=== PATIENT | female | born 1945 | race Caucasian/White ===

== ENCOUNTER 2022-11-26 13:38 | Outpatient (CLI) | payer MEDICARE, OTHER, SELFPAY ==
--- NOTE | 2022-11-26 13:30 | DI.RAD_ITS ---
Exam(s) XR HIP RT COMPLETE AP PELVIS EXAM: XR HIP RT COMPLETE AP PELVIS CLINICAL HISTORY: right hip pain. TECHNIQUE: 2D digital imaging was performed. COMPARISON: CR XR STANDING ALIGNMENT from 11/26/2022 FINDINGS: Two views: There is no evidence of pelvic nor hip fracture. No osseous lesions. There does not appear to be hi p joint space narrowing on either side. No femoral head osteophytes. No femoral neck bony excrescen ce. No osseous lesions. Bone density is age-appropriate Sacroiliac joints unremarkable. IMPRESSION: DATA REPOSITORY: RADIATION DOSE DELIVERED:
--- NOTE | 2022-11-26 13:30 | DI.RAD_ITS ---
Exam(s) XR STANDING ALIGNMENT EXAM: XR STANDING ALIGNMENT CLINICAL HISTORY: right knee pain. TECHNIQUE: 2D digital imaging was performed. COMPARISON: No exams were available for comparison FINDINGS: 3 views There is a left knee prosthesis which appears to be in satisfactory position. There is moderate narrowing of the medial compartment of the opposite-right knee and marginal osteoph ytes in the medial compartment. Lateral compartment of the right knee exhibits normal height. Both hips appear unremarkable. Right ankle unremarkable. There is tilting of the talar dome in the left ankle. No osseous lesions. Bone density normal. IMPRESSION: DATA REPOSITORY: RADIATION DOSE DELIVERED:
--- NOTE | 2022-11-26 13:45 | DI.RAD_ITS ---
Exam(s) XR KNEE RT 1V EXAM: XR KNEE RT 1V CLINICAL HISTORY: right knee pain. TECHNIQUE: 2D digital imaging was performed. COMPARISON: CR XR STANDING ALIGNMENT from 11/26/2022 FINDINGS: Single lateral view right knee: Appears to be mild degenerative change in the patellofemoral compartment. A joint effusion is noted in the suprapatellar bursa. IMPRESSION: DATA REPOSITORY: RADIATION DOSE DELIVERED:
== END 2022-11-26 13:39 | disposition home or self-care (01) ==
PROVIDERS: PCP Family Medicine; Referring Provider Family Medicine; Visit Provider Physician Assistant
DX: M17.11 Unilateral primary osteoarthritis, right knee (principal); M16.11 Unilateral primary osteoarthritis, right hip
CPT/HCPCS: 99203; 73502; 73560; 77073

== ENCOUNTER 2022-12-10 04:08 | Outpatient (CLI) | payer MEDICARE, OTHER, SELFPAY ==
[2022-12-10 15:24] LABS: HCT 39.8 % (36.0-46.0); HGB 12.9 g/dL (11.2-15.7); MCHC 32.4 % (32.0-36.0); MCV 89 fL (80-95); MPV 11.1 fL (8.0-11.0); Platelet Count 344 10^3/uL (130-400); RBC 4.45 10^6/uL (3.93-5.22); RDW 13.1 % (11.7-14.6)
[2022-12-10 15:48] LABS: Anion Gap 8.2 mmol/L (3-11); BUN 11 mg/dL (7-18); CO2 28.8 mmol/L (21.0-32.0); CREATININE 0.9 mg/dL (0.55-1.02); Calcium 9.1 mg/dL (8.5-10.1); Chloride 105 mmol/L (98-107); Estimated GFR 66.67 (mL/min/1.73m2); Glucose 113 mg/dL (74-106); Potassium 3.5 mmol/L (3.5-5.1); Sodium 142 mmol/L (136-145)
== END 2022-12-10 04:09 | disposition home or self-care (01) ==
LOC: LBO 04:08
PROVIDERS: PCP Family Medicine; Visit Provider Student in an Organized Health Care Education/Training Program
DX: M17.11 Unilateral primary osteoarthritis, right knee (principal); Z01.818 Encounter for other preprocedural examination
CPT/HCPCS: 36415; 80048; 85027

== ENCOUNTER 2022-12-16 07:13 | Day surgery (SDC) | payer MEDICARE, OTHER, SELFPAY ==
[2022-12-16] VITALS (12 sets, daily range): BP systolic 89–155; BP diastolic 49–90; PULSE 67–79; RESP 14–18; TEMP 36.1–36.8; O2SAT 93–98; BMI 34.4
--- NOTE | 2022-12-16 07:13 | W.ANESPRE ---
General Info Date of Service Date Performed: 12/16/22 Height: 5 ft 6.5 in Weight: 98.43 kg Body Mass Index (BMI): 34.4 Surgical Procedure: Operation Date: 12/16/22 09:40 Proposed Procedure Side Surgeon p Knee Total Arthroplasty, Cemented CR Right Lucio Vargas MD Meds Allergies and Home Medications Allergies Allergy/AdvReac Type Severity Reaction Status Date / Time No Known Allergies Allergy Verified 12/16/22 07:35 Home Medication Medication Instructions Recorded amlodipine 5 mg tablet 5 mg PO DAILY 11/26/22 ascorbic acid (vitamin C) 1,000 mg 1 g PO Q6H 11/26/22 capsule cholecalciferol (vitamin D3) 25 25 mcg PO DAILY 11/26/22 mcg (1,000 unit) capsule coenzyme Q10 100 mg capsule (Co 100 mg PO DAILY 11/26/22 Q-10) omega-3 fatty acids-fish oil 300 1 cap PO DAILY 11/26/22 mg-500 mg capsule (Fish Oil) rosuvastatin 10 mg tablet 10 mg PO DAILY 11/26/22 turmeric (bulk) 95 % powder 1 pwd miscellaneous DIRECTED 11/26/22 (Curcumin) vitamin B complex 1 cap PO DAILY 11/26/22 acetaminophen 500 mg tablet 500 mg PO Q6H PRN pain #60 tabs 12/16/22 acetaminophen 500 mg tablet 1,000 mg PO Q8-10H PRN 12/16/22 (Tylenol Extra Strength) aspirin 81 mg tablet,delayed 81 mg PO BID 30 days #60 tabs 12/16/22 release celecoxib 200 mg capsule (Celebrex) 200 mg PO BID PRN #60 caps 12/16/22 dexamethasone 4 mg tablet 4 mg PO DAILY #2 tabs 12/16/22 docusate sodium 100 mg capsule 100 mg PO BID #30 caps 12/16/22 (Colace) gabapentin 300 mg capsule 300 mg PO QHS #14 caps 12/16/22 ibuprofen 400 mg tablet 400 mg PO Q8H 12/16/22 oxycodone 5 mg tablet 5 mg PO Q4H PRN severe 12/16/22 post-operative pain #18 tabs pantoprazole 40 mg tablet,delayed 40 mg PO DAILY 30 days #30 tabs 12/16/22 release Current Visit Medications: Current Medications Generic Name Dose Route Start Last Admin Trade Name Freq PRN Reason Stop Dose Admin Acetaminophen 1,000 mg 12/16/22 06:00 Acetaminophen 500 Mg Tab PO 12/16/22 18:00 PREOP MARGIE Celecoxib 400 mg 12/16/22 06:00 Celecoxib 200 Mg Cap PO 12/16/22 18:00 PREOP MARGIE Gabapentin 300 mg 12/16/22 06:00 Gabapentin 300 Mg Cap PO 12/16/22 18:00 PREOP MARGIE Tranexamic Acid 1,000 mg/ 60 mls @ 360 mls/hr 12/16/22 06:00 Sodium Chloride IVPB 12/16/22 18:00 PREOP MARGIE Ringer's Solution 1,000 mls @ 80 mls/hr 12/16/22 06:00 IV 01/14/23 23:59 INFUSION MARGIE Cefazolin Sodium/Dextrose 2 gm in 50 mls @ 100 mls/hr 12/16/22 06:00 Ancef Duplex IVPB 12/16/22 16:00 PREOP [facility] IV Miscellaneous Supplies 1 each 12/16/22 06:00 Iv Access IV 01/14/23 23:59 DIRECTED MARGIE Sodium Chloride 0 ml 12/16/22 06:00 Normal Saline Flush 10 Ml Syr IV 01/14/23 23:59 PRN PRN Sodium Chloride 0 ml 12/16/22 06:00 Normal Saline 10 Ml Vial IJ 01/14/23 23:59 DIRECTED PRN Sterile Water 0 ml 12/16/22 06:00 Water,Injection,Sterile 10 Ml Vial IJ 01/14/23 23:59 DIRECTED PRN PFSH Active Problems Active Problems: Problem Status Onset Code GERD (gastroesophageal reflux disease) K21.9 Degenerative joint disease of right hip M16.11 Degenerative joint disease of right knee M17.11 Hyperlipidemia E78.5 Hypertension I10 Medical History Medical History (Updated 12/16/22 @ 07:44 by Nia Obando) Hx of essential hypertension Hx of hyperlipidemia Surgical History Surgical History (Updated 12/16/22 @ 07:43 by Nia Obando) History of lithotripsy Hx of colonoscopy Status post total left knee replacement Tobacco Smoking/Tobacco Use Status: Former Tobacco Use Alcohol Alcohol Intake: current Alcohol intake frequency: holidays/special occasions only Substance Use Substance use: Rarely Substance use type: marijuana Vital Signs and Lab Results Vital Signs Most Recent Vital Signs in EMR: Temp Pulse Resp BP Pulse Ox 36.7 C 67 16 155/77 H 97 12/16/22 07:57 12/16/22 07:57 12/16/22 07:57 12/16/22 07:57 12/16/22 07:57 Lab Results Blood Type / Crossmatch: No Data to Display Complete Blood Count: White Blood Count 8.60 10^3/uL (4.4-10.8) 12/10/22 14:00 Red Blood Count 4.45 10^6/uL (3.93-5.22) 12/10/22 14:00 Hemoglobin 12.9 g/dL (11.2-15.7) 12/10/22 14:00 Hematocrit 39.8 % (36.0-46.0) 12/10/22 14:00 Platelet Count 344 10^3/uL (130-400) 12/10/22 14:00 Complete Metabolic Panel: Sodium 142 mmol/L (136-145) 12/10/22 14:00 Potassium 3.5 mmol/L (3.5-5.1) 12/10/22 14:00 Chloride 105 mmol/L (98-107) 12/10/22 14:00 Carbon Dioxide 28.8 mmol/L (21.0-32.0) 12/10/22 14:00 BUN 11 mg/dL (7-18) 12/10/22 14:00 Creatinine 0.9 mg/dL (0.55-1.02) 12/10/22 14:00 Est GFR (CKD-EPI 2020) 66.67 (mL/min/1.73m2) 12/10/22 14:00 Calcium 9.1 mg/dL (8.5-10.1) 12/10/22 14:00 Glucose 113 mg/dL (74-106) H 12/10/22 14:00 Liver Function Panel: No Data to Display Coagulation Panel: No Data to Display Cardiac Panel: No Data to Display Arterial Blood Gas: No Data to Display Venous Blood Gas: No Data to Display Pancreas Panel: No Data to Display Thyroid Panel: No Data to Display Infectious Disease: No Data to Display Blood Cultures: No Data to Display Toxicology Panel: No Data to Display Imaging and Studies Imaging and Studies Study information below may be from another EMR and interpreted by another provider. Please see original notes in EMR for more complete details. Stress Test Summary: 04/2021: done for BESS. LVEF 53%, stress ECG negative. No perfusion defects noted. Anesthesia Assessment and Plan Anesthesia History Personal History: No History of Anesthesia Complications Family History: No Family History of Anesthesia Complications Exercise Tolerance Exercise Tolerance: Metabolic Equivalents>4 Cardiac & Pulmonary Exam Cardiac Exam: Normal S1/S2 Heart Sounds Pulmonary Exam: Clear Bilateral Breath Sounds Implantable Cardiac Device Does patient have a Pacemaker or an ICD?: No Airway Exam Known Difficult Airway: No Mallampati Class: 2 Mouth Opening: Normal (> 3cm) Thyromental Distance: Greater than 3 cm Neck Range of Motion: Full ROM Neck Circumference: Normal Teeth Condition: Normal Dentition ASA Classification ASA Score: ASA 2 Emergency Case?: No NPO Status NPO Status: NPO Clears >2 hours, Solids >8 hours Anesthesia Plan Resuscitation Status: Full Code Anesthesia Technique: Spinal Anesthesia Airway Planned: Natural Airway Pain Management: Surgeon and patient request nerve block Monitors Used: Standard Monitors Preoperative Comments:: 77 yo female for TKA. Sig PMHx: GERD (on health history, but denies any symptoms), HTN (amlodipine), former smoker, occ EtOH. Denies other major health history issues. CT cardiac calcium score: 110, moderately increased. LAD 110. Previous anes: - no records here, last TKA elsewhere. States that she also had a spinal and that there were no issues.
--- NOTE | 2022-12-16 07:25 | DSE_ITS ---
Date of service: 12/16/22 Time of Service: 10:51 DS: Diagnosis Discharge Diagnosis (1) Degenerative joint disease of right knee: Status: Acute Discharge Plan Disposition Patient Disposition: Home Condition: Good Discharge Details Reason For Visit: Right knee DJD Attending Provider: Lucio Vargas Primary Care Provider: Ashleigh Dodson Home Meds and New Rx's Prescriptions: New celecoxib [Celebrex] 200 mg capsule 200 mg PO BID PRNQty: 60 0RF Rx Instructions: Take one tablet twice daily for pain and inflammation aspirin 81 mg tablet,delayed release (DR/EC) 81 mg PO BID 30 Days Qty: 60 0RF acetaminophen 500 mg tablet 500 mg PO Q6H PRN (Reason: pain) Qty: 60 2RF pantoprazole 40 mg tablet,delayed release (DR/EC) 40 mg PO DAILY 30 Days Qty: 30 0RF dexamethasone 4 mg tablet 4 mg PO DAILY Qty: 2 0RF Rx Instructions: Take one tablet once daily for two days docusate sodium [Colace] 100 mg capsule 100 mg PO BID Qty: 30 0RF gabapentin 300 mg capsule 300 mg PO QHS Qty: 14 0RF Rx Instructions: Take one tablet at bedtime oxycodone 5 mg tablet 5 mg PO Q4H PRN (Reason: severe post-operative pain) Qty: 18 0RF Rx Instructions: Take one tablet up to every 4 hours as needed for severe pain Continued coenzyme Q10 [Co Q-10] 100 mg capsule 100 mg PO DAILY Fish Oil 300-500 mg capsule 1 cap PO DAILY vitamin B complex Capsule 1 cap PO DAILY Curcumin 95 % powder 1 pwd miscellaneous DIRECTED ascorbic acid (vitamin C) 1,000 mg capsule 1 g PO Q6H cholecalciferol (vitamin D3) 25 mcg (1,000 unit) capsule 25 mcg PO DAILY amlodipine 5 mg tablet 5 mg PO DAILY rosuvastatin 10 mg tablet 10 mg PO DAILY No Action acetaminophen [Tylenol Extra Strength] 500 mg Tablet 1,000 mg PO Q8-10H PRN ibuprofen 400 mg Tablet 400 mg PO Q8H Discharge Instructions Additional Instructions: Total Knee Discharge Instructions Activity: The most important activity is to walk and to work on gentle motion (both flexion and extension). You should try to take short walks a few times a day. It is important that when resting you work on keeping the knee straight. Avoid putting a pillow behind the knee as this will encourage flexion. Work on range of motion exercises as provided by Physical Therapy. - Start outpatient physical therapy within 2 weeks. - You should wear the VLADIMIR hose on both legs for 2 weeks. You may remove these at night. You may also use any compression sock in place of the VLADIMIR hose. - Utilize [employer] to review exercises, see videos on exercises and obtain basic information pertaining to your surgery and your recovery. Dressing: Remove the Antoine wrap by 2 days after your surgery and put on the VLADIMIR stocking given to you from the hospital. Keep the surgical dressing (underneath the ANTOINE wrap) in place for at least one week. After the first week it may be removed and replaced with light gauze and tape or nothing. The wound and dressing may get wet after 3 days but avoid soaking the dressing or otherwise it will need to be changed. Many people prefer covering the dressing with cling wrap (saran wrap) to minimize it from getting soaked. If it gets wet, just pat dry. If it starts to peel off then it will need to be changed. Medications: - You should take Tylenol and anti-inflammatory Celebrex as your primary pain control medications. If the Celebrex is too expensive or not covered, please call the office for another alternative (Advil/Ibuprofen or Naproxen/Aleve) - You have been prescribed a stronger pain medication Oxycodone for breakthrough pain, take as needed as prescribed. - You have also been prescribed a stomach acid reduction agent Pantoprozole to help reduce stomach acid and reflux. - You have been prescribed Gabapentin to take at night for restlessness and nerve pain. - You will be taking Aspirin 81mg twice a day for DVT prevention unless instructed otherwise. - You have also been prescribed Decadron to take to control post-operative domonique sea and pain. You will start this tomorrow. - If you have constipation you should take Colace (which has been prescribed) or Miralax (which is available [id number]). It takes most people 3-4 days to have a bowel movement. Follow-up: 2 weeks If you have any acute concerns or questions, please do not hesitate to contact the office at [phone]. You may contact Dr. Vargas with any questions after hours through the hospital at [phone] or on his cell phone at [phone]. Stand Alone Forms: Anesthesia Discharge Inst., Ej.Nerve Block Instructions, Modesta Reed (DSU) Referrals: Lcuio Vargas MD [ [facility] STAFF PHYSICIAN] - Equipment/Supplies: Walker Activity:: Elevate Remove Dressings/Wound Care:: Do Not Remove Shower/Bathe:: Cover Diet:: As Tolerated DS: Summary Time Spent with Patient providing and/or coordinating discharge services: Less than 30 minutes Status at Discharge Functional status at discharge: uses cane/walker Overall status at discharge: patient is progressing back to baseline Mental Status: mental status grossly normal Speech and Movement: speech and movement normal Mood: congruent mood Affect: normal affect Exam Psych Mental Status: mental status grossly normal Speech and Movement: speech and movement normal Mood: congruent mood Affect: normal affect DS: Data Vitals/I&O Vitals and I&O: Intake & Output 12/15/22 12/15/22 12/16/22 11:59 23:59 11:59 Weight 217 lb 0.016 oz 217 lb 0.016 oz 217 lb 0.016 oz PFSH All Active Problems (Updated 12/16/22 @ 07:44 by Nia Oabndo) Hypertension (Chronic) Hyperlipidemia (Acute) Degenerative joint disease of right knee (Acute) Degenerative joint disease of right hip (Acute) GERD (gastroesophageal reflux disease) (Chronic) Medical History (Updated 12/16/22 @ 07:44 by Nia Obando) Hx of essential hypertension Hx of hyperlipidemia Surgical History (Updated 12/16/22 @ 07:43 by Nia Obando) History of lithotripsy Hx of colonoscopy Status post total left knee replacement Social History Smoking/Tobacco Use Status: Former Tobacco Use Quit Date: 11/29/89 Smoking risk assessment performed?: Yes Alcohol Intake: current Alcohol Intake frequency: holidays/special occasions only Alcohol type: wine and hard liquor Drug use: Rarely Substance use type: marijuana Details: alcohol: new years chacorta. Marijuana: jul 2022 Do you feel safe at home: Yes Do you feel safe in your relationship?: Yes Additional Social history: unable assess privately Time Spent with Patient Time Spent with Patient: <45 minutes Time was spent: ordering medications,tests, procedures, referring, communicating with other health acute care certified nursing assistant, counseling the patient and care coordination
[2022-12-16] MEDS: Celecoxib 200 MG CAP 400 MG PO (07:55)
[2022-12-16] MEDS: Gabapentin 300 MG CAP PO (07:55)
[2022-12-16] MEDS: Acetaminophen 500 MG TAB 1000 MG PO (07:55)
[2022-12-16] MEDS: Lactated Ringers 1,000 ML 80 ML IV (08:25)
[2022-12-16] MEDS: ceFAZolin 2 GM/50 ML BAG IVPB (08:44)
--- NOTE | 2022-12-16 09:04 | ANES.NERVE_ITS ---
Nerve Block Single Injection Procedure Date and Time Date Performed: 12/16/22 Procedure Start: 08:35 Location Where Procedure Performed Procedure Location: Day Surgery Unit Reason Performed: Postoperative Analgesia Requesting Provider: Lucio Vargas Timeout Performed Timeout Performed: Yes Monitoring Used ECG, Blood Pressure and SpO2 Sterility Sterility: Hand Hygiene, Surgical Cap, Surgical Mask, Sterile Gloves and Chlorhexidine Sedation Given During Procedure Sedation Given (Indicate Dose Given): Versed IV Dose:: 1 mg Patient Mental Status Patient Mental Status: Awake Nerve Block 1st Nerve Block: Laterality: Right Block Type: Adductor Canal Ultrasound Image Saved?: Yes Needle / Catheter Used: 120mm SonoPlex II Local Anesthetic Bolus (Indicate Dose Given): Lidocaine used for local infiltration of skin, Injected in 3-5ml increments after negative blood aspiration and Bupivacaine 0.375% Dose:: 10 mL Additives (Indicate Dose Given): None Ultrasound: Sterile probe cover and gel used Nerve Stimulator: Supplement to Ultrasound use and No twitch or p arasthesia noted < 0.5 mA Paresthesia: None Procedure Tolerated: No Complications Procedure Outcome: Successful Performed By: Troy Gtz
--- NOTE | 2022-12-16 11:07 | W.ANESPOSTOP ---
Postoperative Evaluation Date, Time and Location Date Performed: 12/16/22 Time Performed: 11:07 Patient Location: PACU Vital Signs Most Recent Imported Vital Signs: Most Recent Vital Signs Temp Pulse Resp BP Pulse Ox 36.4 C L 68 14 89/70 L 94 12/16/22 10:55 12/16/22 10:55 12/16/22 10:55 12/16/22 10:55 12/16/22 10:55 Pain Score Most Recent Pain Score: Most Recent Pain Score Pain Level 0 12/16/22 10:55 Assessment Mental Status: Awake (Alert & Oriented to Patient Baseline) Airway and Respiratory Function: Patent airway with normal (patient baseline) respiratory exam Cardiovascular Function: Hemodynamically Stable Hydration Status: Adequately Hydrated Nausea & Vomiting: No Nausea or Vomiting Pain: Pt. Denies Any Pain Peripheral Nerve Block: Regional nerve block not resolved at time of post operative discharge
[2022-12-16] MEDS: HYDROmorphone 2 MG/ML SYR IVP ×2 (11:10→11:22)
[2022-12-16] MEDS: Normal Saline 10 ML VIAL IJ (11:10)
[2022-12-16] MEDS: oxyCODONE 5 MG TAB PO (12:14)
--- NOTE | 2022-12-16 13:28 | ROE_ITS ---
Date of service: 12/16/22 Time of Service: 10:30 Operative Note Operative Note DATE OF PROCEDURE: 12/16/22 PRE-OP DIAGNOSIS: Right Knee Osteoarthritis POST-OP DIAGNOSIS: same PROCEDURE: Right Total Knee Replacement SURGEON: Lucio Vargas FISH BAIT PICKER: Sandra Hampton ANESTHESIA TYPE: Spinal Refer to Anesthesia Record ESTIMATED BLOOD LOSS: 250 PATHOLOGY: none sent COMPLICATIONS: None Patient was transported to: PACU Patient's condition: stable Implants: 1. Depuy Attune Cruciate Retaining Femoral Component, Size 5 2. Depuy Attune Rotating Platform Tibial Component, Size 6 3. Depuy Attune 5x7 CR,RP Poly 4. Depuy Attune Patellar Component, Size 38 Indications: I have seen Sridevi in clinic for symptoms of knee arthritis, confirmed with radiographic findings. She has exhausted nonoperative methods and was having significant limitations in daily function and desired better function and less pain. I discussed the technical details of a knee replacement. I explained the risks of the procedure to include, but not limited to, bleeding, infection, pain, stiffness, fracture, damage to nerves and vessels, damage to muscles and tendons, loosening, need for repeat procedure, blood clot and cardiopulmonary demise. Despite these risks, Sridevi elected to proceed. Findings: There was significant signs of arthritis throughout the knee, mostly involving the medial femur but throughout the entire knee. Procedure Description: Sridevi was greeted in the preoperative holding area where the correct side was identified and marked. The consent was reviewed with the patient and signed. The history and physical was updated. All questions were answered. Preoperative mediacations were administered: Acetaminophen 1000mg, Celebrex 400mg, and Gabapentin 300mg. An adductor canal block was then administered by the anesthesia team in the PACU. Sridevi was taken back to the operating room. A spinal anesthestic was then administered. The patient was placed into the supine position on the operating room table. A nonsterile tourniquet was placed high onto the leg but only used for cementing. Posts were placed for positioning during the procedure. All bony prominences were well padded. Prophylactic antibiotics in the form of Cefazolin were administered. 1g of Tranxemic Acid was given intravenously within 30 minutes of incision. The right leg was then prepped with Chloraprep and draped in a standard fashion with impervious stockinette and extremity drape. A second prep with Chloraprep was performed prior to placing Ioband. A timeout to confirm correct identity, side and site, procedure, allergies, anesthesia, and medical concerns was performed. With the knee in some flexion, a midline incision was made overlying the knee. Full thickness skin flaps were raised once the extensor mechanism was encountered. These were raised medially and laterally. Any bleeding was controlled with electrocautery. Once the extensor mechanism was fully exposed, a medial parapatellar arthrotomy was performed in a flexed position. All bleeding from the arthrotomy and the geniculate arteries was coagulated. A medial subperiosteal peel was performed with electrocautery to the midcoronal plane. The fat pad was removed while keeping the patellar tendon protected. The anterior distal femur synovium was removed for later visualization. The ACL and PCL were resected and the anterior horn of the lateral meniscus was transected. The knee was then flexed with the patella everted. Large osteophytes from the tibia were removed. Large osteophytes from the femur were removed. Using a step drill, and based on preoperative templating, the femoral canal was entered. This was done with a step drill without any difficulty. The intramedullary distal femoral cut guide was inserted, set to a 6 degree valgus cut and 9mm cut thickness. The distal femoral cut guide was then held in position and pinned. With the soft tissues protected, the distal cut was performed. This was passed over a few times to ensure a planar cut. I then turned attention to the tibia. The extramedullary guide was placed onto the leg. The distal aspect was slid medial to adjust for position of center of ankle and stay in line with shaft of the tibia. Approximately 3-5 degrees of posterior slope was kept in the proximal cutting guide. The center of the guide was aligned with the PCL. The stylus was used to assess cut thickness. The medial side, most involved side, was set for a 6mm cut, corresponding to 8mm laterally. This was then held in position and pinned into place with 2 additional pins and a cross pin for stability. The medial and lateral collateral ligaments were protected and the cut was performed. With this completed, it was assessed and noted to be of appropriate dimensions. The guide was removed. A spacer block was inserted and the knee was brought into extension. The 6mm spacer block provided full extension, without hyperextension and with stability of both the medial and lateral collateral ligaments was assessed. The pins from the femur and the tibia were then removed. The distal femur was then sized. The anterior stylus was placed onto the lateral ridge of the anterior femur. This indicated a size 5 femur. The external rotation of the guide was adjusted to 3 degrees to match the epicondylar axis, perpendicular to Jennifer?s line. The 4-in-1 cutting guide was the placed. The posterior medial femur cut was evaluated and appeared of good thickness. The spacer block was inserted underneath the cutting guide and stability was confirmed in 90 degrees of flexion. An ragini wing was used to confirm appropriate position of the anterior cut to avoid notching. This cutting guide was ensured to be flush on the cut surface and then pinned into place with headed pins. While protecting the soft tissues, quad tendon, and collateral ligaments, the anterior and posterior cuts were performed with a saw. The central two pins were removed and the posterior and anterior chamfers were cut next. The notch-cutting guide was placed. This was pinned to lateralize the femoral component as much as possible while keeping it flush on the cut surface. This was then pinned into position. A reciprocating saw was used to make the small notch cut. A trial CR femoral component was then inserted, impacted down to the cut surfaces, and the lug holes were drilled. A provisional trial tibial component was placed and the knee was brought through range of motion. The polyethylene was trialed until there was good flexion and extension with excellent stability to the medial and lateral collaterals. The patella was tracking without thumbs. The tibial cut surface was fully exposed. The medial and lateral menisci were removed. The tibia was then sized as a 6. The tibia had been previously marked during trialing to correspond to the center of the tibial component to help with rotation. The trial was aligned to this jak, approximately rotated to the medial 1/3rd of the tibial tubercle. The trial was pinned into place. The tibia was prepared with a reamer and a keel punch. The knee was then brought into extension and the patella was measured as 28mm. Using the patellar clamp and cut guide, this was resected to a flat surface with at least 13mm of thickness remaining. The size 38 patella fit the best. This was oriented and then clamped into position. The lugs were drilled. The trial components were removed. The final components, except for the polyethylene were opened on the back table. The periosteal and capsular tissues, especially posteriorly, around the knee were then systematically injected with a periarticular cocktail consisting of 246mg of Ropivacaine, 0.5mg of Epinephrine, 0.08mg of Clonidine, and 30mg of Ketorolac, diluted to 100cc.. The tourniquet was then inflated to 275mmHg. The knee was thoroughly irrigated with a pulse lavage and dried. On the back table, with the implants opened, the cement was mixed. 2 batches of medium viscosity cement were prepared with vacuum assistance. After the cement was ready it was placed on to the back side of the tibial component. A small amount was placed onto the posterior flange of the femur. Cement was manual pressurized and impregnated into the cut surface of the tibia. The tibial component was then inserted into the cut surface and impacted into position. Excess cement was removed and the component was reimpacted. Again, excess cement was removed and our attention was then turned to the femur. The femoral cut surface was once again dried and cement was manually impacted into the cut surface. The femoral component was lined with the lug holes and impacted. Excess cement was removed. It was ensured to be down against the cut surface. The trial polyethylene was then inserted and the leg was brought out into full extension for the duration of the cement curing process, approximately 18min. Cement was lastly manually impacted into the cut surface of the patella and the patellar button was clamped into position and held. During this process attention was turned to the gutters of the knee and for all interfaces for any excess cement. While the cement was hardening, the knee was irrigated with Surgiphor Betadine solution. It was allowed to sit in the knee for 3 minutes and then it was thoroughly irrigated with saline. After the cement had finally cured, approximately 18min, the clamp was removed from the patella and the knee was taken through range of motion. A size 7mm polyethylene component provided the best range of motion and stability with less than 2mm gapping with medial and lateral stress and full extension without significant hyperextension. The patella was tracking with a no-thumbs technique. The trial poly was removed and once again the knee was checked for any loose, excess, or errant cement. The poly component was then inserted into position after cleaning and drying the tibial tray. The capsule was then reapproximated with a No. 1 Vicryl at multiple locations. The capsule was finally closed with a No. 2 Stratafix, barbed suture. The tourniquet was then released and the arthrotomy appeared watertight without significant bleeding. The second dosing of 1g TXA was started. Deep tissues were then reapproximated with 0 Vicryl and 2-0 Vicryl. The skin was closed with a running 3-0 Monocryl in a subcuticular fashion. This was reinforced with skin glue. A Mepilex silver dressing was applied along with a [id number] CHOLO wrap. A CryoCuff was applied. Sridevi was transferred to the hospital bed without difficulty an suffering no apparent complication. Sridevi has a good prognosis. Physical therapy will start today and without restrictions, weight-bearing as tolerated. Aspirin 81mg BID will be used for DVT prophylaxis.
--- NOTE | 2022-12-16 13:45 | IN_ITS ---
Date of service: 12/16/22 Time of Service: 13:45 PT Notes Visit Reasons: Right knee DJD Physical Therapy Day Surgery Initial Evaluation Date: 12/16/2022 Referring Doctor: JOSE MANUEL Butler PT Orders: PT CONSULT: S/P Ortho surgery Precautions: WBAT on right LE with AD. Patient Profile/Admitting Diagnosis: Sridevi is a 77-year-old female with degenerative joint disease of the right knee and status post right total knee arthroplasty on postoperative day 0. PMHX: Surgical History?(Updated 11/26/22 @ 14:55 by Sandra Hampton) Status post total left knee replacement Social History/Home Situation: Lives with significant other in a private home with 3 steps to enter with a post on 1 side, significant other will be there to support the patient on the other side. There is a flight of steps with rails on both sides to the bedroom. Equipment Owned/DME: [facility] Subjective: Agreeable to PT consult. Reports 2/10 pain in the right knee at rest. Objective: General Observation: CHOLO wraps to right LE. Cryocuff to right knee. TEDs to left leg. Mental Status: Alert and oriented x4 Pain: 2/10 right knee ROM: Right Lower Extremity: Hip flexion WFL. Hip abduction WFL. Knee flexion 10 degrees to 90 degrees. Knee extension -10 degrees. Ankle dorsiflexion WFL. Ankle plantarflexion WFL. Left Lower Extremity: Hip flexion WFL. Hip abduction WFL. Knee flexion WFL. Ankle dorsiflexion WFL. Ankle plantarflexion WFL. Strength: Right Lower Extremity: Hip flexors 4/5. Hip abductors 4/5. Knee flexors 3-/5. Knee extensors 3-/5. Ankle dorsiflexors 5/5. Ankle plantarflexors 5/5. Left Lower Extremity:Hip flexors 5/5. Hip abductors 5/5. Knee flexors 5/5. Knee extensors 5/5. Ankle dorsiflexors 5/5. Ankle plantarflexors 5/5. Sensation: Intact as to pain and light pressure in bilateral lower extremities. Bed Mobility/Transfers: Sit to stand standby assist Stand to sit standby assist Bed to chair standby assist THERA EX: Supine quads sets x 5 Supine heels slides x 5 Ankle pumps x 5 LAQ x 5 Seaetd kathy x 5 Gait: 150 feet of level surface ambulation using front wheeled walker with step through gait pattern and at standby assist. Denies headache, chest pain, and dizziness throughout session. Balance: Static Sitting: Normal Dynamic Sitting: Normal Static Standing: Fair Dynamic Standing: Fair Special Tests: Mobility Limitations Standardized Measure [facility] AM-PAC 6 clicks Basic Mobility Inpatient Short Form: Raw Score: 23 CMS Score: 11% deficit Informed Consent/Education: Patient instructed in purpose of PT consult. Packet containing TKA exercise protocol has been given to patient. Education and training on initial set of exercises that can be done at home have been completed with patient. Assessment: Sridevi requires the use of front wheeled walker for all mobility ADL performance to maximize independence and reduce fall risk. Patient presents with clinical signs and symptoms consistent with current/admitting diagnoses that have resulted to mobility limitations, gait instability, generalized weakness, and impairment of motor control as demonstrated by the following impairment level findings: 1. Decreased strength to right knee major muscle groups 2. Impaired standing balance 3. Limitation of joint range of motion in right knee Impairments are contributing to the following functional limitations: 1. Inability to safely ambulate without assistive device 2. Increase completion time for mobility ADL performance 3. Increased fall risk Patient is assessed as a 47354 moderate complexity based on the following: History: 77-year-old female with impairment level findings, functional limitations, and past medical history as indicated above Examination: Demonstrable impairment in strength, balance, and mobility level with underlying impairments and functional limitations as documented above Presentation: Evolving Decision Makin moderate complexity Goals: N/A. PT evaluation and 1-2 treatment sessions only for functional mobility training using recommended AD and for HEP instruction. Plan of Care/Treatment Plan: N/A. PT evaluation and 1-2 treatment session only for functional mobility training using recommended AD and for HEP instruction. DISCHARGE RECOMMENDATIONS: Home when medically cleared by orthopedic surgeon. Recommend outpatient PT services in order to optimize functional mobility outcomes and facilitate return to independent community ambulation without an assistive device. TREATMENT CODE/TIME: 04335 x 20 minutes, 27340 x 12 minutes beginning at 13:45 PM. Thank you for the opportunity to participate in the care of this patient. Amanda Sommers PT, DPT, CLT [facility] [place], [place]
== END 2022-12-16 15:10 | disposition home or self-care (01) ==
PROVIDERS: PCP Family Medicine; Visit Provider Student in an Organized Health Care Education/Training Program
PROC: (CPT 27447; principal; 2022-12-16 09:30)
DX: M17.11 Unilateral primary osteoarthritis, right knee (principal); I10 Essential (primary) hypertension; E78.5 Hyperlipidemia, unspecified
CPT/HCPCS: 27447; C1776; 97162; 97530; J0690; J1100; J1170; J2250; J2370; J2405; J2704

== ENCOUNTER 2022-12-28 13:03 | Outpatient (CLI) | payer MEDICARE, OTHER, SELFPAY ==
--- NOTE | 2022-12-28 12:30 | DI.RAD_ITS ---
Exam(s) XR KNEE RT 1V XR STANDING ALIGNMENT EXAM: XR STANDING ALIGNMENT CLINICAL HISTORY: 1ST POST OP R TKA. TECHNIQUE: 2D digital imaging was performed. Five images were obtained. COMPARISON: CR XR STANDING ALIGNMENT from 11/26/2022 FINDINGS: BONES: The hips are well maintained. Since the prior examination the patient has undergone a right t otal knee replacement. The orthopedic hardware appears in good position. There is a small joint eff usion. On the left, there is an old total knee replacement which appears in good position. There ar e mild degenerative changes seen of the knees, right greater than left.There is no significant leg le ngth discrepancy. SOFT TISSUE: Normal. IMPRESSION: Stable bilateral total knee replacements. DATA REPOSITORY: RADIATION DOSE DELIVERED:
== END 2022-12-28 13:04 | disposition home or self-care (01) ==
LOC: DIORS 13:03
PROVIDERS: PCP Family Medicine; Referring Provider Family Medicine; Visit Provider Student in an Organized Health Care Education/Training Program
DX: Z96.651 Presence of right artificial knee joint (principal); Z47.1 Aftercare following joint replacement surgery
CPT/HCPCS: 73560; 77073

== ENCOUNTER → 2023-01-25 13:28 | Outpatient (BNVA) | payer MEDICARE, OTHER, SELFPAY | PROVIDERS: PCP Family Medicine; Referring Provider Family Medicine; Visit Provider Physician Assistant | DX: Z47.1 Aftercare following joint replacement surgery (principal); Z96.651 Presence of right artificial knee joint ==

== ENCOUNTER → 2023-03-12 10:58 | Outpatient (BNVA) | payer MEDICARE, OTHER, SELFPAY | PROVIDERS: PCP Family Medicine; Referring Provider Family Medicine; Visit Provider Student in an Organized Health Care Education/Training Program | DX: Z47.1 Aftercare following joint replacement surgery (principal); Z96.651 Presence of right artificial knee joint; T84.82XA Fibrosis due to internal orthopedic prosthetic devices, implants and grafts, initial encounter ==

== ENCOUNTER 2023-03-16 12:18 | Day surgery (SDC) | payer MEDICARE, OTHER, SELFPAY ==
[2023-03-16] VITALS (9 sets, daily range): BP systolic 142–170; BP diastolic 64–86; PULSE 65–74; RESP 16–20; TEMP 36.1–36.6; O2SAT 94–97; BMI 34.4
--- NOTE | 2023-03-16 12:32 | ANES.PREOP_ITS ---
General Info Date of Service Date Performed: 03/16/23 Height: 5 ft 6.5 in Weight: 98.43 kg Body Mass Index (BMI): 34.4 Surgical Procedure: Operation Date: 03/16/23 16:10 Proposed Procedure Side Surgeon p Knee Manipulation Right Lucio Vargas MD Meds Allergies and Home Medications Allergies Allergy/AdvReac Type Severity Reaction Status Date / Time No Known Allergies Allergy Verified 03/16/23 12:51 Home Medication Medication Instructions Recorded amlodipine 5 mg tablet 5 mg PO DAILY 11/26/22 ascorbic acid (vitamin C) 1,000 mg 1 g PO Q6H 11/26/22 capsule cholecalciferol (vitamin D3) 25 25 mcg PO DAILY 11/26/22 mcg (1,000 unit) capsule coenzyme Q10 100 mg capsule (Co 100 mg PO DAILY 11/26/22 Q-10) omega-3 fatty acids-fish oil 300 1 cap PO DAILY 11/26/22 mg-500 mg capsule (Fish Oil) rosuvastatin 10 mg tablet 10 mg PO DAILY 11/26/22 turmeric (bulk) 95 % powder 1 pwd miscellaneous DIRECTED 11/26/22 (Curcumin) vitamin B complex 1 cap PO DAILY 11/26/22 Current Visit Medications: Current Medications Generic Name Dose Route Start Last Admin Trade Name Freq PRN Reason Stop Dose Admin Acetaminophen 650 mg 03/16/23 07:28 Acetaminophen 325 Mg Tab PO Q4H PRN PRN Hydrocodone Bitart/Acetaminophen 0 tab 03/16/23 07:28 Hydrocodone 5/Acetaminophen 325 Tab PO Q3H PRN PRN Pain Ringer's Solution 1,000 mls @ 80 mls/hr 03/16/23 06:00 IV 03/16/23 23:59 INFUSION MARGIE IV Miscellaneous Supplies 1 each 03/16/23 06:00 Iv Access IV 03/16/23 23:59 DIRECTED MARGIE Sodium Chloride 0 ml 03/16/23 06:00 Normal Saline Flush 10 Ml Syr IV 03/16/23 23:59 PRN PRN Sodium Chloride 0 ml 03/16/23 06:00 Normal Saline 10 Ml Vial IJ 03/16/23 23:59 DIRECTED PRN Sterile Water 0 ml 03/16/23 06:00 Water,Injection,Sterile 10 Ml Vial IJ 03/16/23 23:59 DIRECTED PRN PFSH Active Problems Active Problems: Problem Status Onset Code Arthrofibrosis of total knee arthroplasty T84.82XA History of total right knee replacement 12/16/22 Z96.651 Hypertension I10 Hyperlipidemia E78.5 Degenerative joint disease of right hip M16.11 GERD (gastroesophageal reflux disease) K21.9 Medical History Medical History Hx of essential hypertension Hx of hyperlipidemia Hx of sleep apnea pt. reports during [place] paperwork today that she uses a CPAP daily Surgical History Surgical History (Updated 03/16/23 @ 12:51 by Ann Marie Chowdary RN) History of lithotripsy History of total right knee replacement Hx of colonoscopy Status post total left knee replacement Tobacco Smoking/Tobacco Use Status: Former Tobacco Use Alcohol Alcohol Intake: current Alcohol intake frequency: holidays/special occasions o nly Alcohol type: wine and hard liquor Substance Use Substance use: Rarely Substance use type: marijuana Details: alcohol: new years chacorta. Marijuana: jul 2022 Vital Signs and Lab Results Vital Signs Most Recent Vital Signs in EMR: Temp Pulse Resp BP Pulse Ox 36.1 C L 65 16 159/70 H 97 03/16/23 12:42 03/16/23 12:42 03/16/23 12:42 03/16/23 12:42 03/16/23 12:42 Lab Results Blood Type / Crossmatch: No Data to Display Complete Blood Count: No Data to Display Complete Metabolic Panel: No Data to Display Liver Function Panel: No Data to Display Coagulation Panel: No Data to Display Cardiac Panel: No Data to Display Arterial Blood Gas: No Data to Display Venous Blood Gas: No Data to Display Pancreas Panel: No Data to Display Thyroid Panel: No Data to Display Infectious Disease: No Data to Display Blood Cultures: No Data to Display Toxicology Panel: No Data to Display Imaging and Studies Imaging and Studies Study information below may be from another EMR and interpreted by another provider. Please see original notes in EMR for more complete details. Stress Test Summary: 04/2021: done for BESS. LVEF 53%, stress ECG negative. No perfusion defects noted. Anesthesia Assessment and Plan Anesthesia History Personal History: No History of Anesthesia Complications Family History: Family History Unknown Exercise Tolerance Exercise Tolerance: Metabolic Equivalents>4 Cardiac & Pulmonary Exam Cardiac Exam: Normal S1/S2 Heart Sounds Pulmonary Exam: Clear Bilateral Breath Sounds Implantable Cardiac Device Does patient have a Pacemaker or an ICD?: No Airway Exam Known Difficult Airway: No Mallampati Class: 2 Mouth Opening: Normal (> 3cm) Thyromental Distance: Greater than 3 cm Neck Range of Motion: Full ROM Neck Circumference: Normal Teeth Condition: Normal Dentition ASA Classification ASA Score: ASA 2 Emergency Case?: No NPO Status NPO Status: NPO Clears >2 hours, Solids >8 hours Anesthesia Plan Resuscitation Status: Full Code Anesthesia Technique: General Anesthesia Airway Planned: Natural Airway Monitors Used: Standard Monitors Preoperative Comments:: 77 yo female for knee manipulation. Sig PMHx: GERD (on health history, but denies any symptoms), HTN (amlodipine), JEANNIE, former smoker (quit 1989), occ EtOH. Denies other major health history issues. CT cardiac calcium score: 110, moderately increased. LAD 110. Previous anes: -TKA, chloropropane spinal, prop sedation.
[2023-03-16] MEDS: Lactated Ringers 1,000 ML 80 ML IV (13:16)
[2023-03-16] MEDS: Bupivacaine 0.5% Pres-Free 30 ML VIAL (15:10)
--- NOTE | 2023-03-16 15:25 | PDOC.DSDIS_ITS ---
Date of service: 03/16/23 Time of Service: 15:27 Discharge Plan Disposition Patient Disposition: Home Condition: Good Discharge Details Reason For Visit: Right TKA arthrofibrosis Attending Provider: Lucio Vargas Primary Care Provider: Ashleigh Dodson Home Meds and New Rx's Prescriptions: New acetaminophen 500 mg tablet 1,000 mg PO Q8H PRN Qty: 90 0RF Rx Instructions: Take two tablets up to every 8 hours as needed for pain ibuprofen 600 mg tablet 600 mg PO TID PRN (Reason: pain) Qty: 60 0RF Continued coenzyme Q10 [Co Q-10] 100 mg capsule 100 mg PO DAILY Fish Oil 300-500 mg capsule 1 cap PO DAILY vitamin B complex Capsule 1 cap PO DAILY Curcumin 95 % powder 1 pwd miscellaneous DIRECTED ascorbic acid (vitamin C) 1,000 mg capsule 1 g PO Q6H cholecalciferol (vitamin D3) 25 mcg (1,000 unit) capsule 25 mcg PO DAILY amlodipine 5 mg tablet 5 mg PO DAILY rosuvastatin 10 mg tablet 10 mg PO DAILY Discharge Instructions Additional Instructions: Knee Manipulation Discharge Instructions Activity: You should begin moving as soon as possible. You may work on flexion but also equally maintain extension. You may bear weight as tolerated, using crutches only for support/comfort. You should apply ice to help with swelling and elevate when possible (especially in the first few days). Dressings: The knee dressing may come down after 48 hours. You may shower and get the wound wet at that time. You should keep the wounds covered with a bandaid until follow-up. Medications: - Rarely does this require any stronger pain medications. - Recommend to take up to 1000mg of Acetaminophen (Tylenol) and 600mg of Ibupr ofen (Advil) every 8 hours as needed. These larger strength tablets were called in but you also may use [id number]. Follow-up: 7-10 days Stand Alone Forms: Anesthesia Discharge Inst., Modesta Reed ([facility]) Referrals: Lucio Vargas MD [ [facility] STAFF PHYSICIAN] - 03/29/23 11:00 am Equipment/Supplies: Partial Weight Bearing Crutches Activity:: Elevate Remove Dressings/Wound Care:: 48 hours Shower/Bathe:: 48 hours Diet:: As Tolerated Discharge Orders Discharge Orders: Discharge Order (Routine); Ordered 03/16/23 Ordered By: Sandra Hampton
[2023-03-16] MEDS: fentaNYL 100 MCG/2 ML VIAL IVP ×2 (15:36→15:51)
--- NOTE | 2023-03-16 15:46 | W.ANESPOSTOP ---
Postoperative Evaluation Date, Time and Location Date Performed: 03/16/23 Time Performed: 15:46 Patient Location: Day Surgery Unit Vital Signs Most Recent Imported Vital Signs: Most Recent Vital Signs Temp Pulse Resp BP Pulse Ox 36.5 C 70 19 142/64 H 96 03/16/23 15:20 03/16/23 15:20 03/16/23 15:20 03/16/23 15:20 03/16/23 15:20 Pain Score Most Recent Pain Score: Most Recent Pain Score Pain Level 0 03/16/23 15:20 Assessment Mental Status: Awake (Alert & Oriented to Patient Baseline) Airway and Respiratory Function: Patent airway with normal (patient baseline) respiratory exam Cardiovascular Function: Hemodynamically Stable Hydration Status: Adequately Hydrated Nausea & Vomiting: No Nausea or Vomiting Pain: Pain is tolerable per patient Peripheral Nerve Block: Patient did not receive a nerve block
--- NOTE | 2023-03-16 16:26 | ROE_ITS ---
Date of service: 03/16/23 Time of Service: 15:10 Operative Note Operative Note DATE OF PROCEDURE: 03/16/23 PRE-OP DIAGNOSIS: Right Knee Arthrofibrosis s/p Replacement POST-OP DIAGNOSIS: same PROCEDURE: Right Knee Manipulation Under Anesthesia SURGEON: Lucio Vargas ANESTHESIA TYPE: General:No Airway Refer to Anesthesia Record ESTIMATED BLOOD LOSS: 0 PATHOLOGY: none sent TOURNIQUET TIME: 0 COMPLICATIONS: None Patient was transported to: PACU Patient's condition: stable Indications: Sridevi is a 78 year old female who is s/p knee replacement. Despite diligent work with physical therapy there has been continued stiffness. To assist with mobility, I offered a manipulation under anesthesia. I discussed the risks of the procedure to include bleeding, pain, recurrent stiffness, fracture. Despite these risks, she elects to proceed. Findings: Preoperative flexion = 105 Postoperative flexion = 130 Preoperative extension = 10 Postoperative extension = 7 Procedure Description: The patient was greeted in the preoperative holding area. Identity was confirmed and the correct side was identified and marked. The consent was reviewed the patient and signed. History and physical was updated. Sridevi was taken back to the operating room. The right side was identified as the correct side. A timeout was performed for safe surgery. A general anesthetic was administered. The knee was then prepped with ChloraPrep and an intra-articular injection of 8 cc of 0.5% bupivacaine was administered. Once a muscle relaxant was fully on board manipulation was performed. Pre- manipulation range of motion was noted. A gentle manipulation was performed first into flexion using a very small lever arm and adding gentle and progressive pressure to the tibia. There is audible and palpable crepitus with improvement in range of motion. This was cycled and repeated multiple times. The leg was then brought into extension and gentle anterior posterior pressure was applied with a supported hand behind the proximal tibia and knee. This was brought back into flexion was once again manipulated with gentle and progressive pressure. Final range of motion numbers were recorded. A Band-Aid was applied to the injection site. She was awakened from anesthesia and taken to the PACU in stable condition.
[2023-03-16] MEDS: HYDROcodone 5/Acetaminophen 325 TAB PO (16:32)
== END 2023-03-16 17:08 | disposition home or self-care (01) ==
PROVIDERS: PCP Family Medicine; Visit Provider Student in an Organized Health Care Education/Training Program
PROC: (CPT 27570; principal; 2023-03-16 16:00)
DX: T84.82XA Fibrosis due to internal orthopedic prosthetic devices, implants and grafts, initial encounter (principal); Z96.651 Presence of right artificial knee joint
CPT/HCPCS: 27570; J2704; J3010

== ENCOUNTER → 2023-03-29 10:59 | Outpatient (BNVA) | payer MEDICARE, OTHER, SELFPAY | PROVIDERS: PCP Family Medicine; Referring Provider Family Medicine | DX: Z96.651 Presence of right artificial knee joint (principal); T84.82XA Fibrosis due to internal orthopedic prosthetic devices, implants and grafts, initial encounter; Z47.1 Aftercare following joint replacement surgery ==

== ENCOUNTER 2023-12-16 12:19 | Outpatient (CLI) | payer MEDICARE, OTHER, SELFPAY ==
--- NOTE | 2023-12-16 10:15 | DI.RAD_ITS ---
Exam(s) XR KNEE RT 2V AP,LAT EXAM: XR KNEE RT 2V AP,LAT INDICATION: ANNUAL F/U R TKA. COMPARISON: CR XR STANDING ALIGNMENT from 12/28/2022 CR XR KNEE RT 1V from 12/28/2022 TECHNIQUE: 2D digital imaging was performed. Two views. FINDINGS: There has been no change in the alignment of the total knee prosthesis or appearance of the surroundi ng bone. DATA REPOSITORY: RADIATION DOSE DELIVERED:
== END 2023-12-16 12:20 | disposition home or self-care (01) ==
LOC: DIORS 12:19
PROVIDERS: PCP Family Medicine; Visit Provider Student in an Organized Health Care Education/Training Program
DX: Z96.651 Presence of right artificial knee joint (principal); Z47.1 Aftercare following joint replacement surgery
CPT/HCPCS: 99213; 73560